=== PATIENT | female | born 1970 | race African-American/Black ===

== ENCOUNTER 2019-08-09 17:33 | Emergency (ER) | payer OTHER, SELFPAY ==
[2019-08-09 18:01] VITALS: BP 122/71; PULSE 77; RESP 16; TEMP 37.4; O2SAT 98
--- NOTE | 2019-08-09 18:42 | ED.FEMALEGU ---
HPI - Female Genitourinary General Chief complaint: Urogenital-Female Stated complaint: Possible UTI Time Seen by Provider: 08/09/19 18:42 Source: patient Mode of arrival: ambulatory Limitations: no limitations History of Present Illness HPI Narrative: Donna Abdalla is a 49 yo female with a hx of allergies, GERD, who comes to express care for complaints of lower abdominal pain and frequency x 1 day- Related Data Home Medications Medication Instructions Recorded Confirmed Symbicort 08/09/19 albuterol sulfate 08/09/19 cetirizine [Zyrtec] mg 08/09/19 Allergies Allergy/AdvReac Type Severity Reaction Status Date / Time loratadine [From Claritin] Allergy Wheezing Verified 05/02/19 21:21 pseudoephedrine Allergy Rash Verified 05/02/19 21:21 Review of Systems Review of Systems: Narrative: CONSTITUTIONAL: Denies fever, chills, sweats. EYES: Denies visual changes, redness, discharge. ENT: Denies rhinorrhea, congestion, sore throat, otalgia. CARDIOVASCULAR: Denies chest pain, palpitations, edema. RESPIRATORY: Denies dyspnea, wheezing, cough GASTROINTESTINAL: Denies abdominal pain, nausea, vomiting, diarrhea. GENITOURINARY: has dysuria, hematuria, abnormal discharge SKIN: Denies rash or itching. NEUROLOGIC: Denies numbness, or focal weakness. PSYCHIATRIC: Denies anxiety or depression. PMFSH Past Medical History Medical History Frequent UTI Surgical History Surgical History No significant past surgical history Family History Family History Other Diabetes mellitus Heart disease Hypertension Social History Social History Smoking status: Never smoker Gender identity (if verbalized by the patient): Female Comments At time of signature, I agree with nursing past medical, surgical, social and family history. There is no relevant family history pertinent to the presenting complaint. Exam Narrative: Exam Narrative: GENERAL: This is a well-nourished, well-developed patient, in mild distress. HEAD: normocephalic, atraumatic. EYES: PERRL. Sclera clear/white. Vision is grossly intact. EARS: External ears normal, . Hearing grossly intact. NOSE: External nose normal without nasal discharge, nares without redness, no rhinorrhea. THROAT: Mucous membranes moist, NECK: Neck supple, non-tender CARDIOVASCULAR: Regular rate and rhythm without murmurs, gallops, or rubs. RESPIRATORY: Clear to auscultation. Breath sounds equal bilaterally. No wheezes, rales, or rhonchi. GASTROINTESTINAL: Abdomen soft, non-tender, SKIN: warm, intact with no suspicious lesions or rash, good texture and turgor. NEURO: awake, alert, and oriented to person, place and time. There were no obvious focal neurologic abnormalities. Steady gait EXTREMITIES: Normal range of motion. BACK: Nontender without deformity Course Course Emergency Course: UA shows trace of blood; treat with Keflex as patient has dysuria plus blood in urine Vital Signs Vital signs: Vital Signs Temperature 99.3 F 08/09/19 18:01 Pulse Rate 77 08/09/19 18:01 Respiratory Rate 16 08/09/19 18:01 Blood Pressure 122/71 08/09/19 18:01 Pulse Oximetry 98 08/09/19 18:01 Temperature 99.3 F 08/09/19 18:01 Pulse Rate 77 08/09/19 18:01 Respiratory Rate 16 08/09/19 18:01 Blood Pressure 122/71 08/09/19 18:01 Pulse Oximetry 98 08/09/19 18:01 MDM - Female Genitourinary Differential Diagnosis Differential diagnosis: Likely urinary tract infection, cystitis and other Lab Data Labs: Urine Glucose Negative Reference Range: Negative Urine Bilirubin Negative Reference Range: Negative Urine Ketone Negative Reference Range: Negative Urine Specific [place]
== END 2019-08-09 19:05 | disposition home or self-care (01) ==
PROVIDERS: Emergency Provider Nurse Practitioner
DX: K21.9 Gastro-esophageal reflux disease without esophagitis (principal)
CPT/HCPCS: 81003; 87086; 99213; G0463

== ENCOUNTER 2021-09-06 18:42 | Emergency (ER) | payer OTHER, SELFPAY ==
[2021-09-06 18:48] VITALS: BP 122/80; PULSE 84; RESP 16; TEMP 37.3; O2SAT 100
--- NOTE | 2021-09-06 19:09 | PC.NURSE ---
Pt approached triage desk and states her fever wasn't that high in triage and shes not as sick as she thought she was. States she is going to go home. Pt advised to come back to ED for any additional concerns, verbalized understanding. Pt ambulated out of ED with steady gait, in no obvious distress.
== END 2021-09-06 19:09 | disposition left against medical advice (07) ==
LOC: ANHED 19:53
DX: R50.9 Fever, unspecified (principal)
CPT/HCPCS: 99199

== ENCOUNTER 2021-09-23 08:31 | Emergency (ER) | payer OTHER, SELFPAY ==
[2021-09-23 08:45] VITALS: BP 115/73; PULSE 83; RESP 18; TEMP 37.2; O2SAT 100
[2021-09-23 09:11] LABS: Appearance Urine Cloudy (Clear); Bilirubin Urine 1+ (Negative); Blood Urine 3+ (Negative); Color Urine Yellow (Yellow); Glucose Urine UA Negative (Negative); Ketones Urine Trace mg/dL (Negative); Leukocyte Esterase Ur 2+ LEU/UL (Negative); Nitrate Urine Positive (Negative); Protein Urine 2+ mg/dL (Negative); Specific Grav Ur >= 1.030 (1.001-1.035); Urobilinogen Urine 0.2 mg/dL (<2.0)
[2021-09-23 09:14] LABS: Mucus Urine Heavy /lpf; RBC Urine >75 /hpf (0-2); Squamous Epithelial Cell Urine Moderate /hpf (Few); WBC Clumps Urine Present /HPF; WBC Urine >75 /hpf
[2021-09-23 09:22] LABS: Add Urine Microscopic? YES
--- NOTE | 2021-09-23 09:28 | ED.FEMALEGU ---
HPI - Female Genitourinary General Chief complaint: Urogenital-Female Stated complaint: hematuria, hx of UTI Time Seen by Provider: 09/23/21 08:46 History of Present Illness HPI Narrative: 51-year-old female presents with increased urinary frequency, last night she started having some pain with voiding, it feels like her usual UTIs, no flank pain, no fevers no chills or nausea or vomiting. Related Data Home Medications Medication Instructions Recorded Confirmed Symbicort 08/09/19 albuterol sulfate 08/09/19 cetirizine 10 mg capsule (Zyrtec) mg 08/09/19 Allergies Allergy/AdvReac Type Severity Reaction Status Date / Time loratadine [From Claritin] Allergy Wheezing Verified 09/23/21 08:47 pseudoephedrine Allergy Rash Verified 09/23/21 08:47 Review of Systems Review of Systems: CONST: No fever. HEENT: No sore throat C/V: No chest pain RESP: No cough GI: Occasional suprapubic discomfort : dysuria. M/S: No joint pain. SKIN: No rash. NEURO: [No headache or focal numbness or weakness] PSYCH: [No depression] [facility] Past Medical History Medical History Frequent UTI Surgical History Surgical History No significant past surgical history Family History Family History Other Diabetes mellitus Heart disease Hypertension Social History Social History Smoking status: Never smoker Gender identity (if verbalized by the patient): Female Exam Narrative: EXAMINATION OF ORGAN SYSTEMS/BODY AREAS: Constitutional: Vital signs per nursing GENERAL:[No acute distress, non-toxic appearing.] HEAD: Normal with no signs of head trauma. EYES: EOMI, conjunctiva normal ENT: Hearing grossly intact LUNGS: Nonlabored breathing. HEART: [Regular rate and rhythm] ABD: [Soft], [nontender to palpation] EXT: Normal range of motion SKIN: [No rashes or lesions.] NEURO: [Alert and oriented x 3. No gross focal sensory or strength deficits.] PSYCH: Normal affect Course Vital Signs Vital signs: Vital Signs Temperature 98.9 F 09/23/21 08:45 Pulse Rate 83 09/23/21 08:45 Respiratory Rate 18 09/23/21 08:45 Blood Pressure 115/73 09/23/21 08:45 Pulse Oximetry 100 09/23/21 08:45 Oxygen Delivery Room Air 09/23/21 08:45 Temperature 98.9 F 09/23/21 08:45 Pulse Rate 83 09/23/21 08:45 Respiratory Rate 18 09/23/21 08:45 Blood Pressure 115/73 09/23/21 08:45 Pulse Oximetry 100 09/23/21 08:45 Oxygen Delivery Room Air 09/23/21 08:45 MDM - Female Genitourinary MDM Narrative Medical decision making narrative: 51-year-old year-old patient presenting with urinary symptoms consistent with UTI. Urinalysis is obtained and positive for signs of infection. Urine culture sent. Patient started on Macrobid and strongly advised to return for any increasing or worsening pain, fevers or vomiting. They expressed understanding of instructions and is discharged in stable condition. Procedures: Pulse oximetry interpretation - not hypoxic. Review of medical records. DISPOSITION: Discharged home in stable condition. IMPRESSION: 1. Acute uncomplicated cystitis. Lab Data Labs: Lab Results 09/23/21 Range/Units 08:48 Urine Color Yellow (Yellow) Urine Appearance Cloudy H (Clear) Urine pH 6.0 (5.0-9.0) Ur Specific [place] >= 1.030 (1.001-1.035) Urine Protein 2+ H (Negative) mg/dL Urine Glucose (UA) Negative (Negative) mg/dL Urine Ketones Trace (Negative) mg/dL Ur Blood (Man) 3+ H (Negative) Urine Nitrate Positive H (Negative) Urine Bilirubin 1+ H (Negative) Urine Urobilinogen 0.2 (<2.0) mg/dL Leukocyte Esterase Rfl 2+ H (Negative) RATNA/UL Urine RBC >75 H (0-2) /hpf Urine WBC >75 H /hpf Urine WBC Clumps Present H (None) /HPF Ur Squamous Epith
[2021-09-23] MEDS: NITROFURANTOIN MONOHYD MACROCR 100 MG CAP PO (09:32)
== END 2021-09-23 09:38 | disposition home or self-care (01) ==
PROVIDERS: Emergency Provider Emergency Medicine
DX: N39.0 Urinary tract infection, site not specified (principal)
CPT/HCPCS: 81001; 87077; 87086; 87186; 99283; A9270

== ENCOUNTER 2023-02-06 11:03 | Emergency (ER) | payer OTHER, SELFPAY ==
--- NOTE | ~2023-02-06 | XR_ITS ---
EXAMINATION: XR chest 1V portable DATE: 02/06/2023 12:51 INDICATION: Cough. TECHNIQUE: A single frontal view of the chest was obtained. COMPARISON: None. FINDINGS: There is no pneumonia, pleural effusion, or pneumothorax. The heart size is normal. IMPRESSION: 1. No acute cardiopulmonary disease. Reviewed, dictated and finalized at location A.
[2023-02-06 11:08] VITALS: BP 128/78; PULSE 80; RESP 19; TEMP 36.9; O2SAT 100
--- NOTE | 2023-02-06 12:16 | ED.URI ---
HPI - URI/Sore Throat General Chief Complaint: Upper Respiratory Infection Stated Complaint: URI Time Seen by Provider: 02/06/23 12:00 Source: patient Mode of arrival: ambulatory Limitations: no limitations History of Present Illness HPI Narrative: 53 years old -[place] female came to the emergency room because of runny nose, coughing, sore throat, nasal congestion, postnasal discharge, headache intermittent fever started 7 days ago. Patient tested negative for COVID 2 days ago. Patient was on a cruise with her dad who had similar symptoms. History of asthma. Related Data Home Medications Medication Instructions Recorded Confirmed Symbicort 08/09/19 albuterol sulfate 08/09/19 cetirizine 10 mg capsule (Zyrtec) mg 08/09/19 Allergies Allergy/AdvReac Type Severity Reaction Status Date / Time loratadine [From Claritin] Allergy Wheezing Verified 09/23/21 08:47 pseudoephedrine Allergy Rash Verified 09/23/21 08:47 Review of Systems Review of Systems: All systems reviewed & are unremarkable except as noted in HPI and below PMFSH Past Medical History Medical History Frequent UTI Surgical History Surgical History No significant past surgical history Family History Family History Other Diabetes mellitus Heart disease Hypertension Social History Social History Smoking status: Never smoker Gender identity (if verbalized by the patient): Female Exam Narrative: General appearance: Well-developed, well-nourished Skin: Normal color Head: Normocephalic, nontraumatic Eyes: Clear conjunctiva ENT: Oropharyngeal erythema, nasal congestion with clear discharge Neck: Supple, nontender Chest and respiratory: Airway patent, no respiratory distress, no accessory muscle use Heart: Regular rate/rhythm Abdomen: Soft, nontender, no organomegaly, quiet bowel sounds Vascular: Normal peripheral pulses, normal capillary refill. Musculoskeletal: Normal range of motion, nontender back Neurologic: Alert and oriented ?3, [employer] is normal as tested, no gross motor deficit Course Vital Signs Vital signs: Vital Signs Temperature 36.9 C 02/06/23 11:08 Pulse Rate 80 02/06/23 11:08 Respiratory Rate 19 02/06/23 11:08 Blood Pressure 128/78 02/06/23 11:08 Pulse Oximetry 100 02/06/23 11:08 Oxygen Delivery Room Air 02/06/23 11:08 Temperature 36.9 C 02/06/23 11:08 Pulse Rate 80 02/06/23 11:08 Respiratory Rate 19 02/06/23 11:08 Blood Pressure 128/78 02/06/23 11:08 Pulse Oximetry 100 02/06/23 11:08 Oxygen Delivery Room Air 02/06/23 11:08 MDM - URI/Sore Throat MDM Narrative Medical decision making narrative: Patient presents with upper respiratory viral infection symptoms started 7 days ago, started at the last day of cruise ship, her dad had similar symptoms, patient tested negative for COVID 2 days ago. History of asthma currently on Symbicort and albuterol differential diagnosis include viral infection, secondary bacterial pneumonia Work-up today include negative COVID test and flu test, normal chest x-ray. Patient will be discharged on prednisone, Atrovent nasal spray and benzonatate tablets. Differential Diagnosis Differential diagnosis: Likely upper respiratory infection, viral infection, bronchitis, influenza and pharyngitis Medical Records Attestation: I reviewed the patient's medical records. Lab Data Attestation: I reviewed the patient's lab results. Labs: Lab Results
[2023-02-06 12:20] LABS: Influenza A QL RT-PCR Negative (Negative); Influenza B QL RT-PCR Negative (Negative); SARS-CoV-2 RNA PCR Negative (Negative)
[2023-02-06 13:19] VITALS: BP 126/76; PULSE 72; RESP 16; TEMP 36.6; O2SAT 98
== END 2023-02-06 13:20 | disposition home or self-care (01) ==
PROVIDERS: Emergency Medicine; Emergency Provider Emergency Medicine
DX: J06.9 Acute upper respiratory infection, unspecified (principal)
CPT/HCPCS: 71045; 87636; 99283

== ENCOUNTER 2023-02-17 05:56 | Emergency (ER) | payer OTHER, SELFPAY ==
[2023-02-17] VITALS (7 sets, daily range): BP systolic 97–126; BP diastolic 59–65; PULSE 68–89; RESP 16–20; TEMP 36.8; O2SAT 100
--- NOTE | ~2023-02-17 | XR_ITS ---
Portable chest x-ray Comparison: 02/06/2023 Clinical History: Cough, asthma Findings: Lungs are clear, without focal consolidation or pleural effusion. Cardiomediastinal silho uette is stable. Bones and soft tissues are unremarkable. Impression: Normal chest. Reviewed, dictated and finalized at location . Impression: Normal chest.
[2023-02-17 07:25] LABS: Influenza A QL RT-PCR Negative (Negative); Influenza B QL RT-PCR Negative (Negative); RSV RNA, RT-PCR Negative (Negative); SARS-CoV-2 RNA PCR Negative (Negative)
[2023-02-17] MEDS: ALBUTEROL SULFATE NEB 2.5 MG/3 ML INH 15 MG INHALATION (07:26)
[2023-02-17] MEDS: IPRATROPIUM BR 0.02% INH SOLN 0.5 MG/2.5 ML VIAL 1 MG INHALATION (07:26)
--- NOTE | 2023-02-17 07:29 | ED.URI ---
HPI - URI/Sore Throat General Chief Complaint: Upper Respiratory Infection Stated Complaint: cough Time Seen by Provider: 02/17/23 06:58 History of Present Illness HPI Narrative: Patient had been seen here about 10 days ago with similar symptoms with cough, some shortness of breath, and congestion, has been treated here and felt much better for a few days, then her fianc? got sick and she got sick again. Related Data Home Medications Medication Instructions Recorded Confirmed Symbicort 08/09/19 albuterol sulfate 08/09/19 cetirizine 10 mg capsule (Zyrtec) mg 08/09/19 Allergies Allergy/AdvReac Type Severity Reaction Status Date / Time loratadine [From Claritin] Allergy Wheezing Verified 02/17/23 06:35 pseudoephedrine Allergy Rash Verified 02/17/23 06:35 Review of Systems Review of Systems: CONST: No fever. HEENT: Nasal congestion, sore throat C/V: No chest pain RESP: Cough and some shortness of breath GI: No abdominal pain : No dysuria. M/S: No joint pain. SKIN: No rash. NEURO: [No headache or focal numbness or weakness] PSYCH: [No depression] [facility] Past Medical History Medical History (Updated 02/17/23 @ 08:26 by Vivi Saucedo MD) Frequent UTI Surgical History Surgical History No significant past surgical history Family History Family History Other Diabetes mellitus Heart disease Hypertension Social History Social History Smoking status: Never smoker Gender identity (if verbalized by the patient): Female Exam Narrative: EXAMINATION OF ORGAN SYSTEMS/BODY AREAS: Constitutional: Vital signs per nursing GENERAL:[No acute distress, non-toxic appearing.] HEAD: Normal with no signs of head trauma. EYES: EOMI, conjunctiva normal ENT: Hearing grossly intact, nasal congestion LUNGS: Nonlabored breathing. Diminished breath sounds with some wheezing HEART: [Regular rate and rhythm] ABD: [Soft], [nontender to palpation] EXT: Normal range of motion SKIN: [No rashes or lesions.] NEURO: [Alert and oriented x 3. No gross focal sensory or strength deficits.] PSYCH: Normal affect Course Vital Signs Vital signs: Vital Signs Temperature 98.2 F 02/17/23 05:59 Pulse Rate 68 02/17/23 05:59 Respiratory Rate 20 02/17/23 05:59 Blood Pressure 110/65 02/17/23 05:59 Pulse Oximetry 100 02/17/23 05:59 Oxygen Delivery Room Air 02/17/23 05:59 Temperature 98.2 F 02/17/23 05:59 Pulse Rate 87 02/17/23 09:19 Respiratory Rate 18 02/17/23 09:19 Blood Pressure 126/64 02/17/23 09:19 Pulse Oximetry 100 02/17/23 09:19 Oxygen Delivery Room Air 02/17/23 06:37 MDM - URI/Sore Throat MDM Narrative Medical decision making narrative: ED COURSE AND MEDICAL DECISION MAKINF with URI sx and diminished breath sounds likely due to asthma exacerbation from URI based on H&P. Patient is hemodynamically stable. Nebulizer treatments are started and steroids given orally. Patient monitored in the ED for a couple of hours and on reevaluation is feeling slightly better. No respiratory distress or accessory muscle use. Good air movement bilateral lungs. Prescriptions for [albuterol and steroid course] provided. Flonase prescribed. COVID swabs neg. She is given strict return precautions and patient is discharged in stable/improved condition. Pulse oximetry interpretation: Not hypoxic. Lab Data Labs: Lab Results 02/17/23 Range/Units 06:42 Influenza A (RT-PCR) Negative (Negative) Influenza B (RT-PCR) Negative (Negative) RSV (RT-PCR) Negative (Negative) SARS-CoV-2 RNA (RT-PCR) Negative (Negative) Discharge Plan Discharge Clinical Impression: Upper respiratory infection Patient Disposition: Home, Self-Care Condition: Stable Instructions: Antibiotic Form, Acute
[2023-02-17] MEDS: predniSONE 20 MG TABLET 40 MG PO (09:15)
== END 2023-02-17 09:21 | disposition home or self-care (01) ==
PROVIDERS: Emergency Medicine; Emergency Provider Emergency Medicine
DX: J06.9 Acute upper respiratory infection, unspecified (principal); Z20.822 Contact with and (suspected) exposure to COVID-19; Z87.440 Personal history of urinary (tract) infections
CPT/HCPCS: 71045; 87637; 94640; 99283; J7512

== ENCOUNTER 2023-12-28 09:49 | Emergency (ER) | payer OTHER, SELFPAY ==
--- NOTE | 2023-12-28 09:55 | ED.FEMALEGU ---
HPI - Female Genitourinary General Chief complaint: Urogenital-Female Stated complaint: pt thinks she has UTI Time Seen by Provider: 12/28/23 09:53 Source: patient Mode of arrival: ambulatory Limitations: no limitations History of Present Illness HPI Narrative: Patient is a 53 y/o female who presents to the ED with concern for UTI. Patient reports over the last 3-4 days she has had urinary frequency. Denies dysuria, but did note a cloudy appearance to her urine. She took a home UTI test which was positive. She has Hx of frequent UTIs and states sx's feel similar. Last Tx'd for a UTI in September of this year, was in [place] at the time, unsure of name of antibiotic. She denies any abdominal or back pain. Denies hematuria, fevers, nausea, vomiting. Related Data Home Medications Medication Instructions Recorded Confirmed Symbicort 08/09/19 albuterol sulfate 08/09/19 cetirizine 10 mg capsule (Zyrtec) mg 08/09/19 Allergies Allergy/AdvReac Type Severity Reaction Status Date / Time loratadine [From Claritin] Allergy Wheezing Verified 12/28/23 09:49 pseudoephedrine Allergy Rash Verified 12/28/23 09:49 Review of Systems Review of Systems: All systems reviewed & are unremarkable except as noted in HPI. All systems reviewed & are unremarkable except as noted in HPI and below PMFSH Past Medical History Medical History (Updated 12/28/23 @ 10:36 by Yael Hare PA-C) Frequent UTI Surgical History Surgical History No significant past surgical history Family History Family History Other Diabetes mellitus Heart disease Hypertension Social History Social History Smoking status: Never smoker Gender identity (if verbalized by the patient): Female Exam Narrative: GENERAL: Well appearing, well-nourished, non-toxic, in no acute distress. HEAD: Normocephalic, atraumatic. RESPIRATORY: Airway patent, respirations nonlabored. Clear to auscultation bilaterally, no rales, rhonchi, wheezing. CARDIOVASCULAR: Regular rate and rhythm ABDOMINAL: Soft, nontender, nondistended. Normoactive BS. No CVA tenderness to percussion MUSCULOSKELETAL: Moves all extremities. No gross deformities. SKIN: Warm, dry, normal color. NEURO: A&O X3. Speech clear. PSYCHIATRIC: Appropriate mood and affect. Normal interaction. Course Vital Signs Vital signs: Vital Signs Temperature 98.3 F 12/28/23 09:56 Pulse Rate 58 L 12/28/23 09:56 Respiratory Rate 18 12/28/23 09:56 Blood Pressure 127/80 12/28/23 09:56 Pulse Oximetry 100 12/28/23 09:56 Oxygen Delivery Room Air 12/28/23 09:56 Temperature 98.3 F 12/28/23 09:56 Pulse Rate 58 L 12/28/23 09:56 Respiratory Rate 18 12/28/23 09:56 Blood Pressure 127/80 12/28/23 09:56 Pulse Oximetry 100 12/28/23 09:56 Oxygen Delivery Room Air 12/28/23 09:56 MDM - Female Genitourinary MDM Narrative Medical decision making narrative: UA here is clear. Will send for cx. Patient was updated on this. Will be discharged. She does not have any abdominal pain, back pain, systemic signs of infections to suggest need for further labs or imaging at this time. Will prescribe Pyridium for symptom management. Recommended that patient follow-up with primary care doctor for further evaluation. Given return precautions. D/C in stable condition. Medical Records Attestation: I reviewed the patient's medical records. Lab Data Attestation: I reviewed the patient's lab results. Labs: Lab Results 12/28/23 Range/Units 09:59 Urine Color Yellow (Yellow) Urine Appearance Clear (Clear) Urine pH 5.5 (5.0-8.0) Ur Specific [place] 1.025 H (1.010-1.020) Urine Protein Negative (Negative) Urine Glucose (UA) Negative (Negative) Urine Ketones Negative (
[2023-12-28 09:56] VITALS: BP 127/80; PULSE 58; RESP 18; TEMP 36.8; O2SAT 100
[2023-12-28 10:28] LABS: Appearance Urine Clear (Clear); Blood Urine Negative (Negative); Color Urine Yellow (Yellow); Glucose Urine UA Negative (Negative); Ketones Urine Negative (Negative); Nitrate Urine Negative (Negative); Protein Urine Negative (Negative); Specific Grav Ur 1.025 (1.010-1.020); pH Urine 5.5 (5.0-8.0)
[2023-12-28 10:29] LABS: Add Urine Microscopic? NO; Bilirubin Urine Negative (Negative); Leukocyte Esterase Ur Negative LEU/UL (Negative); Urobilinogen Urine 0.2 mg/dL (0.2-1.0)
[2023-12-28 11:17] VITALS: BP 125/78; PULSE 59; RESP 16; TEMP 36.6; O2SAT 100
== END 2023-12-28 11:15 | disposition home or self-care (01) ==
LOC: ANHED 10:23
PROVIDERS: Emergency Provider Physician Assistant
DX: R35.0 Frequency of micturition (principal); Z87.440 Personal history of urinary (tract) infections
CPT/HCPCS: 81003; 99283